=== PATIENT | female | born 1990 ===

== ENCOUNTER 2017-10-24 12:52 | Emergency (ER) | payer SELFPAY ==
[~2017-10-24] VITALS: Ht 154.9 cm; Wt 95.2 kg
[~2017-10-24 12:52] MED LIST: AZIT250 PO; CEPH500 PO; CLOT1TC TOP; CODACE30 PO; CRUTCH4 USE; DIPH50 PO; HYDACE5 PO; HYDACE5325 PO; IBUP600 PO; IBUP800 PO; KETO15TC TP; NAPR500 PO; NEOPOLHCSU OT; NEOPOLHYDS BOTHEARS; PRED10 PO; PRED20 PO; RXHYD5325 PO; RXNEOPOLHC AS; TRIA80TC TOP; [UNRECOGNIZED DRUG - REMARK]
[2017-10-24] MEDS ORDERED: ALBU90OI INH (13:41)
[2017-10-24] MEDS ORDERED: Phenergan6.25 MG/5 PO (13:41)
== END 2017-10-24 13:47 | disposition home or self-care (01) ==
LOC: ER 12:52
DX: J40 Bronchitis, not specified as acute or chronic (principal); F17.210 Nicotine dependence, cigarettes, uncomplicated
CPT/HCPCS: 71046; 99283

== ENCOUNTER 2018-07-06 22:46 | Emergency (ER) | payer MEDICAID ==
[~2018-07-06] VITALS: Ht 154.9 cm; Wt 93.2 kg
[~2018-07-06 22:46] MED LIST changes: +ALBU90OI INH; +Phenergan6.25 MG/5 PO
== END 2018-07-07 00:13 | disposition home or self-care (01) ==
LOC: ER 22:46
DX: K08.89 Other specified disorders of teeth and supporting structures (principal); F17.210 Nicotine dependence, cigarettes, uncomplicated
CPT/HCPCS: 99282

== ENCOUNTER → 2025-03-14 | Outpatient (CLI) | payer OTHER | END | disposition home or self-care (01) | LOC: LAB SHORT 18:00 → LAB 18:00 | DX: S80.01XA Contusion of right knee, initial encounter (principal); L08.9 Local infection of the skin and subcutaneous tissue, unspecified | CPT/HCPCS: 87070; 87075; 87205 ==